=== PATIENT | female | born 1995 | race Caucasian/White ===

== ENCOUNTER 2017-01-01 14:23 | Emergency (ER) | payer MEDICAID ==
[~2017-01-01] VITALS: Ht 165.1 cm; Wt 80.5 kg
[2017-01-01 14:27] VITALS: Ht 165.1 cm; Wt 80.5 kg
--- NOTE | 2017-01-01 18:13 | RADRPT ---
PROCEDURE: XR Chest AP portable CLINICAL INDICATION: Chest pain TECHNIQUE: An AP portable radiograph of the chest was submitted. COMPARISON: None. FINDINGS: Support Hardware: None Cardiovascular: The cardiovascular silhouette appears unremarkable. Lung Cuevas: The lung cuevas appear clear with no nodule, alveolar infiltrate, or interstitial promi nence evident. Pleural Spaces: No pneumothorax or pleural effusion is identified. Osseous Structures: The osseous structures appear intact. Soft Tissues: The soft tissues appear unremarkable. IMPRESSION: Unremarkable portable chest. Physician Darrell Date Time Electronically viewed and signed by Octavio Zacarias Physician on 01/01/2017 18:13 /
[2017-01-01] MEDS ORDERED: IBUP-1542 PO (18:46)
--- NOTE | 2017-01-01 18:53 | ERD ---
ER Documentation Chief Complaint Chief Complaint chest wall pain x 2 months HPI This is a 21-year-old female presents to the ER with chest wall pain last 2 months. Patient states that she got a really bad cough and cold back in October , and then after this resolved she developed sharp chest pain whenever she inhales. Patient cough and cold. She denies any shortness of breath. She denies any recent travel. She denies any recent surgeries. She is not on control, and she has never had a pulmonary embolism in the past. Patient denies any fevers or chills. States she smokes tobacco and marijuana. ROS 12 point review of systems was done, all negative except per HPI.. Medications Home Meds Active Scripts Ibuprofen* (Motrin*) 600 Mg Tab, 600 MG PO Q6, #30 TAB Prov:LEOLA ALBERTS [place] 01/01/17 Allergies Allergies: Coded Allergies: No Known Allergy (Unverified , 04/01/13) PMhx/Soc Medical and Surgical Hx: pt denies Medical Hx, pt denies Surgical Hx Physical Exam Vitals Vital Signs Date Time Temp Pulse Resp B/P Pulse Ox O2 Delivery O2 Flow Rate FiO2 01/01/17 14:27 98.6 73 18 166/95 99 Physical Exam GENERAL: The patient is well developed and appropriate for usual state of health , in no apparent distress. HEENT: Atraumatic. Conjunctivae are pink. Pupils equal, round, and reactive to light. Extraocular muscles are grossly intact. Bilateral tympanic membranes are clear with no evidence of erythema, effusion or dulling of the light reflex. The oropharynx is clear with no erythema or exudates. NECK: C-spine is soft and supple. There is no cervical lymphadenopathy. CHEST: Clear to auscultation bilaterally. There are no rales, wheezes or rhonchi. HEART: Regular rate and rhythm. No murmurs, clicks, rubs or gallops. ABDOMEN: Soft, nontender and nondistended. Good bowel sounds. No rebound or guarding. No gross peritonitis. No gross organomegaly or masses. No Castellanos sign or McBurney point tenderness. No pulsatile masses. BACK: No midline or flank tenderness. EXTREMITIES: Equal pulses bilaterally. There is no peripheral clubbing, cyanosis or edema. No focal swelling or erythema. Full range of motion. Grossly neurovascularly intact. NEURO: Alert and oriented. Cranial nerves II through XII are intact. Motor strength in all 4 extremities with 5/5 strength. Sensation grossly intact. Normal speech and gait. SKIN: There is no apparent rash or petechia. The skin is warm and dry. Procedures/MDM Differential diagnosis includes but is not limited to; STEMI, dissection, pneumothorax, PE, esophageal rupture, tamponade, pneumonia, pericarditis, GERD, musculoskeletal, endocarditis, anxiety. Etiology of chest pain is unknown, however suspicion for acute cardiac etiology is low. EKG was taken [address] elevation no T-wave inversion was signed by Dr. Whitlock. Patient does not have any PERC criteria. Patient will be sent with ibuprofen. She is to follow- up with her primary care doctor within 1-2 days or return to ER sooner if symptoms worsen. My medical decision making sure with the patient she understands and agrees with plan per Departure Diagnosis: Primary Impression: Chest wall pain Condition: Stable Patient Instructions: Chest Wall Pain, Costochondritis Additional Instructions: Call your primary care doctor TOMORROW for an appointment during the next 1-2 days.See the doctor sooner or return here if your condition worsens before your appointment time. LEOLA ALBERTS Jan 01, 2017 18:53
[2017-01-01 18:55] VITALS: BP 123/78; PULSE 68; RESP 18
== END 2017-01-01 18:55 | disposition home or self-care (01) ==
LOC: FTE 14:23
DX: R07.89 Other chest pain (principal)
CPT/HCPCS: 71010; 93005; Z7502

== ENCOUNTER 2017-05-01 12:02 | Emergency (ER) | END 2017-05-01 18:00 | disposition home or self-care (01) ==